=== PATIENT | male | born 1970 | race Caucasian/White ===

== ENCOUNTER 2021-10-12 05:43 | Inpatient (IN) | payer BC ==
[2021-10-12] MEDS ORDERED: TICAGRELOR 90 MG TABLET PO SCH (06:00)
[2021-10-12] MEDS ORDERED: Nitroglycerin 50 MG/250 ML BOT 250 ML ONE (06:02)
[2021-10-12] MEDS ORDERED: Heparin 10,000 UNITS/ 10 ML VIAL ONE (06:02)
[2021-10-12] MEDS ORDERED: Adenosine 6 MG/2 ML VIAL ONE (06:03)
[2021-10-12] MEDS ORDERED: Bivalirudin 250 MG VIAL ONE (06:03)
[2021-10-12] MEDS ORDERED: Verapamil 5 MG/2 ML VIAL ONE (06:03)
[2021-10-12] MEDS ORDERED: Fentanyl 100 MCG/2 ML VIAL ONE (06:04)
[2021-10-12] MEDS ORDERED: Midazolam HCl 5 mg/5 ml Vial ONE (06:04)
[2021-10-12] MEDS ORDERED: Morphine 4 MG/ML VIAL ONE ×2 (06:05→07:33)
[2021-10-12 06:21] LABS: #Basophils 0.1 10x3/uL (0.0-0.2); #Neutrophils 13.1 10x3/uL (1.5-8.4); %Basophils 0.3 % (0.0-2.0); %Eosinophils 0.2 % (0.0-6.0); %Lymphocytes 11.4 % (18.0-47.0); %Monocytes 11.5 % (0.0-10.0); Mean Corpuscular HGB CONC 33.1 g/dL (32.0-36.0); Mean Corpuscular Hemoglobin 30.1 pg (27.0-33.0); Mean Corpuscular Volume 90.7 fl (81.2-95.1); Mean Platelet Volume 10.9 fl (7.4-10.4); Platelet Count 313 10x3/uL (150-450); RBC Distribution Width 15.3 % (11.5-14.5); Red Blood Cell (RBC) Count 3.99 10x6/uL (4.32-5.72); White Blood Cell (WBC) Count 17.2 10x3/uL (3.5-10.5)
[2021-10-12 06:41] LABS: ALT (SGPT) 47 U/L (8-55); AST (SGOT) 54 U/L (5-34); Acetaminophen Less than 10.0 mcg/mL (10.0-30.0); Albumin 3.2 g/dL (3.5-5.0); Alcohol Less than 10 mg/dL (Less than 10); Alkaline Phosphatase 85 U/L (40-110); Anion Gap 18 mmol/L (10-20); BUN (Urea Nitrogen) 31 mg/dL (8.4-25.7); Bilirubin, Total 0.8 mg/dL (0.2-1.2); Calc. Creatinine Clearance 0 mL/min (70-130); Calcium 8.6 mg/dL (7.8-10.44); Carbon Dioxide 15 mmol/L (22-29); Chloride 108 mmol/L (98-107); Globulin 3.1 g/dL (2.4-3.5); Glucose 150 mg/dL (70-105); Magnesium 1.6 mg/dL (1.6-2.6); Potassium 4.5 mmol/L (3.5-5.1); Protein, Total 6.3 g/dL (6.0-8.3); Salicylate Less than 8.0 mg/dL (15.0-30.0); Sodium 136 mmol/L (136-145)
[2021-10-12] MEDS ORDERED: Ondansetron PF 4 MG/2 ML Vial ONE (06:50)
[2021-10-12 07:15] LABS: SARS-CoV-2 NAA Rapid Test Not Detected (NotDetected)
[2021-10-12 07:32] LABS: CKMB 9.2 ng/mL (0-6.6)
[2021-10-12] MEDS ORDERED: Senokot S 8.6-50 MG TAB PO PRN (08:08)
[2021-10-12] MEDS ORDERED: Acetaminophen 325 MG TAB PO PRN (08:08)
[2021-10-12] MEDS ORDERED: Ondansetron ODT 4 MG TAB PO PRN (08:08)
[2021-10-12] MEDS ORDERED: Calcium Carbonate 500 MG ChewTAB PO PRN (08:08)
[2021-10-12] MEDS ORDERED: HYDROcodone/Acetaminophen 5/325 mg Tablet PO PRN ×2 (08:08)
[2021-10-12] MEDS ORDERED: Loperamide HCl 2 MG CAP PO PRN (08:08)
[2021-10-12] MEDS ORDERED: Sodium Chloride 0.9% 200 ML IV PRN (08:13)
[2021-10-12] MEDS ORDERED: Acetaminophen/Codeine 30-300mg Tablet PO PRN (08:13)
[2021-10-12] MEDS ORDERED: Nitroglycerin 0.4 MG TAB (25 Tab Bottle) SL PRN (08:13)
[2021-10-12] MEDS ORDERED: DOPamine/D5W 400 mg/250 ml PREMIX ONE (08:30)
[2021-10-12] MEDS: Sodium Chloride 0.9% 1,000 ML IV SCH ×2 (08:30→20:37)
[2021-10-12] MEDS ORDERED: Enoxaparin Sodium 40 MG/0.4 ML SYRINGE SC SCH (09:00)
[2021-10-12] MEDS ORDERED: Morphine 2 MG/ML VIAL SLOW IVP PRN (09:45)
[2021-10-12] MEDS: Morphine 2 MG/ML VIAL SLOW IVP SCH ×2 (09:50→11:26)
[2021-10-12] MEDS: Aspirin 81 mg Enteric Coated Tablet PO SCH (09:58)
[2021-10-12] MEDS: Gabapentin 300 MG CAP PO SCH ×3 (10:03→20:16)
[2021-10-12] MEDS: Lisinopril 2.5 MG TAB PO SCH (10:04)
[2021-10-12 10:12] LABS: Troponin I 14.674 ng/mL (< 0.028)
[2021-10-12] MEDS ORDERED: Atropine Sulfate 1 mg/10 ml Syringe ONE (11:12)
[2021-10-12] MEDS: ALPRAZolam 0.25 MG TAB PO PRN (14:52)
[2021-10-12 15:24] LABS: Troponin I 33.074 ng/mL (< 0.028)
[2021-10-12] MEDS ORDERED: Iopamidol 300 61% 100 ML VIAL FS ONE (15:29)
[2021-10-12] MEDS: Carvedilol 6.25 MG TAB PO SCH (16:54)
[2021-10-12] MEDS: Morphine 2 MG/ML VIAL SLOW IVP PRN ×2 (17:44→20:17)
[2021-10-12] MEDS: Atorvastatin Calcium 40 MG TAB PO SCH (20:16)
[2021-10-12 21:09] LABS: Troponin I 32.906 ng/mL (< 0.028)
[2021-10-13] MEDS: Morphine 2 MG/ML VIAL SLOW IVP PRN ×7 (00:28→19:44)
[2021-10-13 03:11] LABS: #Monocytes 1.9 10x3/uL (0.0-1.1); #Neutrophils 8.3 10x3/uL (1.5-8.4); %Basophils 0.2 % (0.0-2.0); %Eosinophils 0.2 % (0.0-6.0); %Monocytes 14.4 % (0.0-10.0); %Neutrophils 63.7 % (40.0-75.0); Hemoglobin 11.1 g/dL (13.5-17.5); Mean Corpuscular HGB CONC 33.3 g/dL (32.0-36.0); Mean Corpuscular Hemoglobin 30.5 pg (27.0-33.0); Mean Corpuscular Volume 91.5 fl (81.2-95.1); Mean Platelet Volume 10.6 fl (7.4-10.4); Platelet Count 285 10x3/uL (150-450); RBC Distribution Width 15.5 % (11.5-14.5); Red Blood Cell (RBC) Count 3.64 10x6/uL (4.32-5.72)
[2021-10-13 04:40] LABS: ALT (SGPT) 131 U/L (8-55); AST (SGOT) 120 U/L (5-34); Albumin 3.3 g/dL (3.5-5.0); Alkaline Phosphatase 141 U/L (40-110); Anion Gap 16 mmol/L (10-20); BUN (Urea Nitrogen) 27 mg/dL (8.4-25.7); Bilirubin, Total 0.7 mg/dL (0.2-1.2); Calc. Creatinine Clearance 67 mL/min (70-130); Calcium 8.8 mg/dL (7.8-10.44); Carbon Dioxide 21 mmol/L (22-29); Chloride 102 mmol/L (98-107); Globulin 2.8 g/dL (2.4-3.5); Glucose 106 mg/dL (70-105); Potassium 4.6 mmol/L (3.5-5.1); Protein, Total 6.1 g/dL (6.0-8.3); Sodium 134 mmol/L (136-145)
[2021-10-13 05:38] VITALS: BMI 23.8
[2021-10-13] MEDS: Gabapentin 300 MG CAP PO SCH ×3 (08:14→19:57)
[2021-10-13] MEDS: Lisinopril 2.5 MG TAB PO SCH (08:16)
[2021-10-13] MEDS: Carvedilol 6.25 MG TAB PO SCH ×2 (08:17→09:03)
[2021-10-13] MEDS: Aspirin 81 mg Enteric Coated Tablet PO SCH (08:18)
[2021-10-13] MEDS: Enoxaparin Sodium 40 MG/0.4 ML SYRINGE SC SCH (08:19)
[2021-10-13] MEDS ORDERED: Carvedilol 25 MG TAB PO SCH (08:30)
[2021-10-13] MEDS ORDERED: Lisinopril 5 MG TAB PO SCH (09:00)
[2021-10-13 09:46] LABS: Cardiac Risk 3.8 (Less than 4.5)
[2021-10-13] MEDS: Carvedilol 25 MG TAB PO SCH (16:00)
[2021-10-13] MEDS: Zolpidem Tartrate 5 MG TAB PO PRN (19:57)
[2021-10-13] MEDS: Atorvastatin Calcium 40 MG TAB PO SCH (19:57)
[2021-10-14] MEDS: Morphine 2 MG/ML VIAL SLOW IVP PRN ×4 (00:25→21:08)
[2021-10-14 03:56] LABS: Hemoglobin 10.6 g/dL (13.5-17.5); Mean Corpuscular HGB CONC 33.5 g/dL (32.0-36.0); Mean Corpuscular Hemoglobin 30.7 pg (27.0-33.0); Mean Corpuscular Volume 91.6 fl (81.2-95.1); Mean Platelet Volume 10.9 fl (7.4-10.4); Platelet Count 282 10x3/uL (150-450); RBC Distribution Width 15.2 % (11.5-14.5); Red Blood Cell (RBC) Count 3.45 10x6/uL (4.32-5.72); White Blood Cell (WBC) Count 10.3 10x3/uL (3.5-10.5)
[2021-10-14 04:15] LABS: Anion Gap 17 mmol/L (10-20); BUN (Urea Nitrogen) 21 mg/dL (8.4-25.7); Calc. Creatinine Clearance 87 mL/min (70-130); Calcium 9.1 mg/dL (7.8-10.44); Carbon Dioxide 21 mmol/L (22-29); Chloride 110 mmol/L (98-107); Glucose 116 mg/dL (70-105); Potassium 4.2 mmol/L (3.5-5.1); Sodium 144 mmol/L (136-145)
[2021-10-14] MEDS: Carvedilol 25 MG TAB PO SCH ×2 (08:34→17:01)
[2021-10-14] MEDS: Enoxaparin Sodium 40 MG/0.4 ML SYRINGE SC SCH (08:34)
[2021-10-14] MEDS: ALPRAZolam 0.25 MG TAB PO PRN (08:35)
[2021-10-14] MEDS: Aspirin 81 mg Enteric Coated Tablet PO SCH (08:35)
[2021-10-14] MEDS: Acetaminophen/Codeine 30-300mg Tablet PO PRN ×2 (08:35→17:02)
[2021-10-14] MEDS: Gabapentin 300 MG CAP PO SCH ×3 (08:35→21:01)
[2021-10-14] MEDS ORDERED: TICAGRELOR 90 MG TABLET PO SCH (10:15)
[2021-10-14] MEDS ORDERED: Communication Order-Pharmacy FS SCH (15:15)
[2021-10-14] MEDS: Atorvastatin Calcium 40 MG TAB PO SCH (21:00)
[2021-10-14] MEDS: Zolpidem Tartrate 5 MG TAB PO PRN (22:25)
[2021-10-15] MEDS: Morphine 2 MG/ML VIAL SLOW IVP PRN ×6 (01:46→21:56)
[2021-10-15 04:22] LABS: Mean Corpuscular HGB CONC 33.5 g/dL (32.0-36.0); Mean Corpuscular Hemoglobin 30.4 pg (27.0-33.0); Mean Corpuscular Volume 90.6 fl (81.2-95.1); Mean Platelet Volume 10.6 fl (7.4-10.4); Platelet Count 322 10x3/uL (150-450); RBC Distribution Width 14.7 % (11.5-14.5); Red Blood Cell (RBC) Count 3.62 10x6/uL (4.32-5.72); White Blood Cell (WBC) Count 9.9 10x3/uL (3.5-10.5)
[2021-10-15 04:36] LABS: PTT 26.8 sec (22.0-33.0); Prothrombin Time 11.2 sec (9.5-12.1)
[2021-10-15 04:37] LABS: ALT (SGPT) 147 U/L (8-55); AST (SGOT) 75 U/L (5-34); Albumin 3.4 g/dL (3.5-5.0); Alkaline Phosphatase 166 U/L (40-110); Anion Gap 15 mmol/L (10-20); BUN (Urea Nitrogen) 16 mg/dL (8.4-25.7); Bilirubin, Total 0.5 mg/dL (0.2-1.2); Calc. Creatinine Clearance 85 mL/min (70-130); Calcium 9.2 mg/dL (7.8-10.44); Carbon Dioxide 23 mmol/L (22-29); Chloride 104 mmol/L (98-107); Globulin 3.2 g/dL (2.4-3.5); Glucose 106 mg/dL (70-105); Potassium 3.7 mmol/L (3.5-5.1); Protein, Total 6.6 g/dL (6.0-8.3); Sodium 138 mmol/L (136-145)
[2021-10-15 06:18] LABS: Anisocytosis SLIGHT = 6-15 cells (100X) (0-5/hpf); MDiff Complete? YES; Platelet Morphology Comment Appears Adequate; Poikilocytosis SLIGHT = 6-15 cells (100X) (0-5/hpf)
[2021-10-15 06:20] LABS: Band 5 % (5-11); Eosinophils 2 % (0-10); Lymphocytes 19 % (21-51); Monocytes 18 % (0-10); Neutrophil 54 % (42-75)
[2021-10-15] MEDS: TICAGRELOR 90 MG TABLET PO SCH ×2 (08:11→21:01)
[2021-10-15] MEDS: Aspirin 81 mg Enteric Coated Tablet PO SCH (08:11)
[2021-10-15] MEDS: Gabapentin 300 MG CAP PO SCH ×3 (08:11→21:01)
[2021-10-15] MEDS: Carvedilol 25 MG TAB PO SCH ×2 (08:11→16:24)
[2021-10-15] MEDS ORDERED: Heparin 10,000 UNITS/ 10 ML VIAL ONE (13:03)
[2021-10-15] MEDS ORDERED: Lidocaine 1% MPF 2 ML VIAL ONE (13:03)
[2021-10-15] MEDS ORDERED: Nitroglycerin 50 MG/250 ML BOT 250 ML ONE (13:03)
[2021-10-15] MEDS ORDERED: Verapamil 5 MG/2 ML VIAL ONE (13:04)
[2021-10-15] MEDS ORDERED: Adenosine 6 MG/2 ML VIAL ONE (13:04)
[2021-10-15] MEDS ORDERED: Bivalirudin 250 MG VIAL ONE (13:04)
[2021-10-15] MEDS ORDERED: Fentanyl 100 MCG/2 ML VIAL ONE (13:37)
[2021-10-15] MEDS ORDERED: Midazolam HCl 2 mg/2 ml Vial ONE (13:37)
[2021-10-15] MEDS ORDERED: Atropine Sulfate 0.4 mg/1 ml Vial ONE (14:17)
[2021-10-15] MEDS ORDERED: Ondansetron PF 4 MG/2 ML Vial ONE (14:17)
[2021-10-15] MEDS ORDERED: Acetaminophen/Codeine 30-300mg Tablet PO PRN ×2 (14:31)
[2021-10-15] MEDS ORDERED: Sodium Chloride 0.9% 200 ML IV PRN (14:31)
[2021-10-15] MEDS ORDERED: Nitroglycerin 0.4 MG TAB (25 Tab Bottle) SL PRN (14:31)
[2021-10-15] MEDS ORDERED: Iopamidol 300 61% 100 ML VIAL FS ONE (14:42)
[2021-10-15] MEDS: Atorvastatin Calcium 40 MG TAB PO SCH (21:01)
[2021-10-16] MEDS ORDERED: Bupivacaine 0.25% HCL 30 ML VIAL ONE (06:06)
[2021-10-16] MEDS ORDERED: EPINEPHrine 1 MG/ML AMP ONE (06:07)
[2021-10-16] MEDS ORDERED: Bupivacaine PF 0.5% 30 ML VIAL ONE (06:07)
[2021-10-16] MEDS ORDERED: Methylene Blue 50 MG/10 ML AMPUL ONE (06:07)
[2021-10-16] MEDS ORDERED: Neomycin-Polymyxin 1 ML AMP ONE (06:08)
[2021-10-16] MEDS: Aspirin 81 mg Enteric Coated Tablet PO SCH (08:34)
[2021-10-16] MEDS: TICAGRELOR 90 MG TABLET PO SCH (08:34)
[2021-10-16] MEDS: Gabapentin 300 MG CAP PO SCH (08:34)
[2021-10-16] MEDS: Carvedilol 25 MG TAB PO SCH (08:34)
[2021-10-16 11:21] VITALS: BP 117/75; TEMP 98
== END 2021-10-16 09:35 | disposition home or self-care (01) | DRG 247 ==
LOC: CSHERS 05:43 → CSHICU 09:47 → CSHTELE 10-13 12:58
PROVIDERS: ADMIT Specialist; ATTEND Specialist
PROC: 027034Z Dilation of Coronary Artery, One Artery with Drug-eluting Intraluminal Device, Percutaneous Approach (ICD-10-PCS; principal; 2021-10-12)
PROC: 02C03ZZ Extirpation of Matter from Coronary Artery, One Artery, Percutaneous Approach (ICD-10-PCS; 2021-10-12)
PROC: 4A023N7 Measurement of Cardiac Sampling and Pressure, Left Heart, Percutaneous Approach (ICD-10-PCS; 2021-10-12)
PROC: B2111ZZ Fluoroscopy of Multiple Coronary Arteries using Low Osmolar Contrast (ICD-10-PCS; 2021-10-12)
PROC: B2151ZZ Fluoroscopy of Left Heart using Low Osmolar Contrast (ICD-10-PCS; 2021-10-12)
PROC: B2111ZZ Fluoroscopy of Multiple Coronary Arteries using Low Osmolar Contrast (ICD-10-PCS; 2021-10-15)
DX: I21.19 ST elevation (STEMI) myocardial infarction involving other coronary artery of inferior wall (principal); I31.3 Pericardial effusion (noninflammatory); G89.29 Other chronic pain; M54.9 Dorsalgia, unspecified; F17.210 Nicotine dependence, cigarettes, uncomplicated; F12.90 Cannabis use, unspecified, uncomplicated; I25.5 Ischemic cardiomyopathy; E78.5 Hyperlipidemia, unspecified; I50.9 Heart failure, unspecified; I11.0 Hypertensive heart disease with heart failure; R79.89 Other specified abnormal findings of blood chemistry; Z79.82 Long term (current) use of aspirin; Z79.02 Long term (current) use of antithrombotics/antiplatelets; Z20.822 Contact with and (suspected) exposure to COVID-19; Z98.890 Other specified postprocedural states; Z79.899 Other long term (current) drug therapy; Z82.49 Family history of ischemic heart disease and other diseases of the circulatory system; I25.10 Atherosclerotic heart disease of native coronary artery without angina pectoris
CPT/HCPCS: 36415; 36416; 71045; 80048; 80053; 80061; 80307; 82553; 83036; 83735; 83880; 84484; 85025; 85027; 85347; 85610; 85730; 92941; 92973; 93005; 93010; 93306; 93454; 93458; 94760; 96374; 97139; 99152; 99153; C1725; C1726; C1769; C1874; C1887; C1894; C9606; J0153; J0171; J0461; J0583; J1265; J1644; J1650; J2250; J2270; J2405; J3010; J7050; Q9967; Q9968; S0020; U0002

== ENCOUNTER 2021-11-30 08:33 | Observation (INO) | payer BC ==
[2021-11-30 09:27] LABS: #Basophils 0.1 10x3/uL (0.0-0.2); #Eosinphils 0.1 10x3/uL (0.0-0.5); #Neutrophils 7.3 10x3/uL (1.5-8.4); %Basophils 0.5 % (0.0-2.0); %Eosinophils 0.9 % (0.0-6.0); %Lymphocytes 21.7 % (18.0-47.0); %Monocytes 9.6 % (0.0-10.0); %Neutrophils 66.7 % (40.0-75.0); Hemoglobin 13.7 g/dL (13.5-17.5); Mean Corpuscular HGB CONC 33.3 g/dL (32.0-36.0); Mean Corpuscular Hemoglobin 29.7 pg (27.0-33.0); Mean Corpuscular Volume 89.2 fl (81.2-95.1); Mean Platelet Volume 9.6 fl (7.4-10.4); Platelet Count 486 10x3/uL (150-450); RBC Distribution Width 15.2 % (11.5-14.5); Red Blood Cell (RBC) Count 4.61 10x6/uL (4.32-5.72); White Blood Cell (WBC) Count 10.9 10x3/uL (3.5-10.5)
[2021-11-30 09:46] LABS: ALT (SGPT) 20 U/L (8-55); AST (SGOT) 16 U/L (5-34); Albumin 4.7 g/dL (3.5-5.0); Alkaline Phosphatase 108 U/L (40-110); Anion Gap 21 mmol/L (10-20); BUN (Urea Nitrogen) 29 mg/dL (8.4-25.7); Bilirubin, Total 0.4 mg/dL (0.2-1.2); CK (CPK) 47 U/L (30-200); Calc. Creatinine Clearance 0 mL/min (70-130); Calcium 10.7 mg/dL (7.8-10.44); Carbon Dioxide 22 mmol/L (22-29); Chloride 101 mmol/L (98-107); Estimated GFR 39; Globulin 3.9 g/dL (2.4-3.5); Glucose 144 mg/dL (70-105); Potassium 4.7 mmol/L (3.5-5.1); Protein, Total 8.6 g/dL (6.0-8.3); Sodium 139 mmol/L (136-145)
[2021-11-30 10:09] LABS: CKMB 0.8 ng/mL (0-6.6)
[2021-11-30] MEDS ORDERED: Aspirin Chewable 81 MG TAB ONE (10:11)
[2021-11-30] MEDS ORDERED: Nitroglycerin 0.4 MG TAB (25 Tab Bottle) SL PRN (11:05)
[2021-11-30] MEDS ORDERED: Ondansetron PF 4 MG/2 ML Vial IVP PRN (11:05)
[2021-11-30] MEDS ORDERED: Nicotine 14 MG PATCH TD PRN (11:05)
[2021-11-30] MEDS ORDERED: Ondansetron ODT 4 MG TAB PO PRN (11:05)
[2021-11-30] MEDS ORDERED: Senokot S 8.6-50 MG TAB PO PRN (11:05)
[2021-11-30 13:15] VITALS: BMI 22.7
[2021-11-30] MEDS ORDERED: TICAGRELOR 90 MG TABLET PO SCH (13:45)
[2021-11-30] MEDS: Sodium Chloride 0.9% 1,000 ML IV SCH (14:02)
[2021-11-30 14:15] LABS: Magnesium 1.8 mg/dL (1.6-2.6)
[2021-11-30] MEDS ORDERED: Iopamidol 370 76% 100 ML VIAL ONE (15:11)
[2021-11-30 15:28] LABS: Troponin I 0.071 ng/mL (< 0.028)
[2021-11-30 16:31] LABS: SARS-CoV-2 NAA Rapid Test Not Detected (NotDetected)
[2021-11-30 16:51] LABS: Bilirubin Neg (Negative); Blood, Urine 10 (Negative); Clarity Clear (Clear); Glucose, Urine (Dipstick) Normal (Negative); Ketone, Urine Negative (Negative); Leukocyte Negative (Negative); Nitrite Negative (Negative); Protein, Urine (Dipstick) Negative (Neg-Trace); Specific Gravity, Urine 1.015 (1.002-1.036); Urobilinogen Normal mg/dL (Less than 2)
[2021-11-30 17:02] LABS: RBC/HPF 0-3 HPF (0-3)
[2021-11-30 17:56] LABS: Troponin I 0.072 ng/mL (< 0.028)
[2021-11-30] MEDS: Carvedilol 12.5 MG TAB PO SCH (20:18)
[2021-11-30] MEDS: Acetaminophen 325 MG TAB PO PRN (20:46)
[2021-11-30] MEDS: TICAGRELOR 90 MG TABLET PO SCH (20:46)
[2021-11-30] MEDS: Gabapentin 300 MG CAP PO SCH (20:48)
[2021-12-01 04:33] LABS: #Basophils 0.1 10x3/uL (0.0-0.2); #Eosinphils 0.2 10x3/uL (0.0-0.5); #Monocytes 0.9 10x3/uL (0.0-1.1); #Neutrophils 5.3 10x3/uL (1.5-8.4); %Basophils 0.8 % (0.0-2.0); %Eosinophils 2.2 % (0.0-6.0); %Lymphocytes 28.3 % (18.0-47.0); %Monocytes 10.3 % (0.0-10.0); %Neutrophils 58.2 % (40.0-75.0); Hemoglobin 12.5 g/dL (13.5-17.5); Mean Corpuscular HGB CONC 33.9 g/dL (32.0-36.0); Mean Corpuscular Hemoglobin 29.6 pg (27.0-33.0); Mean Corpuscular Volume 87.2 fl (81.2-95.1); Mean Platelet Volume 9.6 fl (7.4-10.4); Platelet Count 437 10x3/uL (150-450); RBC Distribution Width 15.3 % (11.5-14.5); Red Blood Cell (RBC) Count 4.23 10x6/uL (4.32-5.72)
[2021-12-01 04:51] LABS: Anion Gap 14 mmol/L (10-20); BUN (Urea Nitrogen) 26 mg/dL (8.4-25.7); Calc. Creatinine Clearance 56 mL/min (70-130); Carbon Dioxide 24 mmol/L (22-29); Chloride 105 mmol/L (98-107); Estimated GFR 59; Glucose 103 mg/dL (70-105); Potassium 4.4 mmol/L (3.5-5.1); Sodium 139 mmol/L (136-145)
[2021-12-01] MEDS: Acetaminophen 325 MG TAB PO PRN (05:37)
[2021-12-01] MEDS: Gabapentin 300 MG CAP PO SCH (08:10)
[2021-12-01] MEDS: Carvedilol 12.5 MG TAB PO SCH (08:11)
[2021-12-01] MEDS: Sodium Chloride 0.9% 1,000 ML IV SCH (08:12)
[2021-12-01] MEDS: TICAGRELOR 90 MG TABLET PO SCH (08:12)
[2021-12-01] MEDS ORDERED: Aspirin 81 mg Enteric Coated Tablet PO SCH (09:00)
[2021-12-01 12:07] VITALS: BP 131/77; TEMP 99
== END 2021-12-01 13:20 | disposition home or self-care (01) ==
LOC: CSHERS 08:33 → CSHTELE 11:42
PROVIDERS: ADMIT Internal Medicine; ATTEND Internal Medicine
DX: R07.9 Chest pain, unspecified (principal); I31.3 Pericardial effusion (noninflammatory); D72.829 Elevated white blood cell count, unspecified; D75.839 Thrombocytosis, unspecified; N17.9 Acute kidney failure, unspecified; R73.9 Hyperglycemia, unspecified; F17.210 Nicotine dependence, cigarettes, uncomplicated; I11.0 Hypertensive heart disease with heart failure; I50.22 Chronic systolic (congestive) heart failure; G89.29 Other chronic pain; M54.9 Dorsalgia, unspecified; I25.2 Old myocardial infarction; I25.10 Atherosclerotic heart disease of native coronary artery without angina pectoris; Z79.02 Long term (current) use of antithrombotics/antiplatelets; Z79.82 Long term (current) use of aspirin; Z79.899 Other long term (current) drug therapy; Z95.5 Presence of coronary angioplasty implant and graft; Z20.822 Contact with and (suspected) exposure to COVID-19
CPT/HCPCS: 71045; 71275; 80048; 80053; 81001; 82550; 82553; 83735; 84484; 85025; 85379; 93005; 93306; 94760; 96360; 96361; G0378; J7050; Q9967; U0002

== ENCOUNTER 2023-06-02 08:20 | Inpatient (IN) | payer BC ==
[2023-06-02 08:48] LABS: #Basophils 0.1 10x3/uL (0.0-0.2); #Eosinphils 0.1 10x3/uL (0.0-0.5); #Monocytes 0.6 10x3/uL (0.0-1.1); %Basophils 0.7 % (0.0-2.0); %Eosinophils 1.7 % (0.0-6.0); %Lymphocytes 28.6 % (18.0-47.0); %Monocytes 7.6 % (0.0-10.0); %Neutrophils 61.3 % (40.0-75.0); Mean Corpuscular HGB CONC 33.3 g/dL (32.0-36.0); Mean Corpuscular Hemoglobin 29.6 pg (27.0-33.0); Mean Corpuscular Volume 88.8 fl (81.2-95.1); Mean Platelet Volume 10.9 fl (7.4-10.4); Platelet Count 388 10x3/uL (150-450); RBC Distribution Width 14.9 % (11.5-14.5); Red Blood Cell (RBC) Count 5.07 10x6/uL (4.32-5.72); White Blood Cell (WBC) Count 8.2 10x3/uL (3.5-10.5)
[2023-06-02] MEDS ORDERED: Nitroglycerin 2% Ointment 1 INCH/1 GM Packet ONE (08:55)
[2023-06-02] MEDS ORDERED: Morphine 4 MG/ML VIAL ONE (08:55)
[2023-06-02] MEDS ORDERED: Labetalol HCl 100 MG/20 ML VIAL ONE (08:56)
[2023-06-02] MEDS ORDERED: Aspirin Chewable 81 MG TAB ONE (08:56)
[2023-06-02 09:09] LABS: ALT (SGPT) 17 U/L (8-55); AST (SGOT) 18 U/L (5-34); Albumin 4.1 g/dL (3.5-5.0); Alkaline Phosphatase 73 U/L (40-110); Anion Gap 17 mmol/L (10-20); BUN (Urea Nitrogen) 21 mg/dL (8.4-25.7); Bilirubin, Total 0.5 mg/dL (0.2-1.2); Calc. Creatinine Clearance 0 mL/min (70-130); Calcium 9.6 mg/dL (7.8-10.44); Carbon Dioxide 20 mmol/L (22-29); Chloride 107 mmol/L (98-107); Estimated GFR 51; Globulin 3.3 g/dL (2.4-3.5); Glucose 135 mg/dL (70-105); Magnesium 1.8 mg/dL (1.6-2.6); Potassium 4.6 mmol/L (3.5-5.1); Protein, Total 7.4 g/dL (6.0-8.3); Sodium 139 mmol/L (136-145)
[2023-06-02 09:12] LABS: Troponin I 0.032 ng/mL (< 0.028)
[2023-06-02] MEDS ORDERED: hydrALAZINE 20 MG/ML VIAL ONE ×2 (09:19→18:19)
[2023-06-02] MEDS ORDERED: Enoxaparin 60 MG (0.6 mL) SYRINGE ONE (09:24)
[2023-06-02] MEDS ORDERED: Acetaminophen 325 MG TAB PO PRN (09:51)
[2023-06-02] MEDS ORDERED: hydrALAZINE 20 MG/ML VIAL SLOW IVP PRN (09:56)
[2023-06-02] MEDS ORDERED: Magnesium 2 GM/50 ML(in water) 2 GM in Premix 1 BAG IVPB SCH (10:30)
[2023-06-02 11:53] LABS: Troponin I 0.022 ng/mL (< 0.028)
[2023-06-02 13:25] LABS: Bilirubin Neg (Negative); Blood, Urine Negative (Negative); Clarity Clear (Clear); Glucose, Urine (Dipstick) Normal (Negative); Ketone, Urine Negative (Negative); Leukocyte Negative (Negative); Nitrite Negative (Negative); Protein, Urine (Dipstick) 15 mg/dl (Neg-Trace); Urobilinogen Normal mg/dL (Less than 2)
[2023-06-02] MEDS ORDERED: Furosemide 40 MG (4 mL) VIAL SLOW IVP SCH (13:30)
[2023-06-02] MEDS ORDERED: Carvedilol 6.25 MG TAB PO SCH (13:30)
[2023-06-02] MEDS ORDERED: Furosemide 40 MG (4 mL) VIAL ONE (13:41)
[2023-06-02] MEDS ORDERED: Magnesium 2 GM/50 ML BAG (IN WATER) ONE (13:41)
[2023-06-02] MEDS ORDERED: Carvedilol 6.25 MG TAB ONE ×2 (13:43→16:04)
[2023-06-02 14:04] LABS: Bacteria/HPF Rare-Few HPF (None Seen); CAUTI Indications for Culture Pelvic or flank pain; RBC/HPF 0-3 HPF (0-3); Squamous Epithelial 0-3 HPF (0-3); WBC/HPF 0-3 HPF (0-3)
[2023-06-02 14:07] LABS: Urine Culture Reflex No No
[2023-06-02 15:06] VITALS: BMI 21.9
[2023-06-02 15:26] LABS: Troponin I 0.035 ng/mL (< 0.028)
[2023-06-02] MEDS ORDERED: Acetaminophen 325 MG TAB ONE (16:03)
[2023-06-02] MEDS: Carvedilol 6.25 MG TAB PO SCH (16:10)
[2023-06-02] MEDS ORDERED: Ketorolac Tromethamine 30 MG (1 mL) VIAL ONE (18:19)
[2023-06-02] MEDS ORDERED: Ketorolac Tromethamine 30 MG (1 mL) VIAL IVP SCH (20:00)
[2023-06-02] MEDS: Famotidine 20 MG TAB PO SCH (20:37)
[2023-06-02] MEDS: Atorvastatin Calcium 40 MG TAB PO SCH (20:37)
[2023-06-02] MEDS: Enoxaparin 60 MG (0.6 mL) SYRINGE SC SCH (20:38)
[2023-06-02] MEDS ORDERED: Metoprolol Tartrate 25 MG TAB PO SCH (21:00)
[2023-06-03 05:19] LABS: Anion Gap 14 mmol/L (10-20); BUN (Urea Nitrogen) 25 mg/dL (8.4-25.7); Calc. Creatinine Clearance 45 mL/min (70-130); Calcium 9.7 mg/dL (7.8-10.44); Carbon Dioxide 21 mmol/L (22-29); Chloride 106 mmol/L (98-107); Estimated GFR 47; Glucose 105 mg/dL (70-105); Magnesium 2.2 mg/dL (1.6-2.6); Potassium 3.6 mmol/L (3.5-5.1); Sodium 137 mmol/L (136-145)
[2023-06-03] MEDS ORDERED: Amlodipine 10 MG TAB PO SCH ×2 (10:00→10:30)
[2023-06-03] MEDS: Carvedilol 6.25 MG TAB PO SCH (10:15)
[2023-06-03] MEDS: Enoxaparin 60 MG (0.6 mL) SYRINGE SC SCH ×2 (10:20→21:07)
[2023-06-03] MEDS: Aspirin Chewable 81 MG TAB PO SCH (10:20)
[2023-06-03] MEDS: Famotidine 20 MG TAB PO SCH ×2 (10:20→21:08)
[2023-06-03] MEDS ORDERED: Carvedilol 12.5 MG TAB PO SCH ×2 (10:30→17:00)
[2023-06-03] MEDS ORDERED: Magnesium Sulfate 2 GM in Sodium Chloride 0.9% 100 ML IVPB SCH (13:30)
[2023-06-03] MEDS ORDERED: Magnesium 2 GM/50 ML(in water) 2 GM in Premix 1 BAG IVPB SCH (13:30)
[2023-06-03] MEDS ORDERED: Gabapentin 300 MG CAP PO SCH (13:30)
[2023-06-03] MEDS ORDERED: Potassium Chloride 20 MEQ TAB PO SCH (13:30)
[2023-06-03] MEDS ORDERED: Gabapentin 400 MG CAP PO SCH (13:30)
[2023-06-03] MEDS: hydrALAZINE 25 MG TAB PO SCH ×2 (13:51→21:08)
[2023-06-03] MEDS ORDERED: HYDROcodone/Acetaminophen 5/325 mg Tablet PO SCH (15:45)
[2023-06-03] MEDS ORDERED: Carvedilol 6.25 MG TAB PO SCH ×2 (17:00→18:00)
[2023-06-03] MEDS: hydrALAZINE 20 MG/ML VIAL SLOW IVP PRN (18:00)
[2023-06-03] MEDS: Atorvastatin Calcium 40 MG TAB PO SCH (21:08)
[2023-06-03] MEDS: Gabapentin 400 MG CAP PO SCH (21:08)
[2023-06-04] MEDS: hydrALAZINE 20 MG/ML VIAL SLOW IVP PRN (03:20)
[2023-06-04 06:06] LABS: #Basophils 0.1 10x3/uL (0.0-0.2); #Eosinphils 0.2 10x3/uL (0.0-0.5); #Monocytes 0.8 10x3/uL (0.0-1.1); #Neutrophils 4.3 10x3/uL (1.5-8.4); %Eosinophils 2.2 % (0.0-6.0); %Lymphocytes 26.8 % (18.0-47.0); %Monocytes 10.8 % (0.0-10.0); %Neutrophils 58.9 % (40.0-75.0); Hematocrit 39.7 % (38.8-50.0); Hemoglobin 13.6 g/dL (13.5-17.5); Mean Corpuscular HGB CONC 34.3 g/dL (32.0-36.0); Mean Corpuscular Hemoglobin 29.7 pg (27.0-33.0); Mean Corpuscular Volume 86.7 fl (81.2-95.1); Mean Platelet Volume 11.1 fl (7.4-10.4); Platelet Count 358 10x3/uL (150-450); RBC Distribution Width 15.2 % (11.5-14.5); Red Blood Cell (RBC) Count 4.58 10x6/uL (4.32-5.72); White Blood Cell (WBC) Count 7.3 10x3/uL (3.5-10.5)
[2023-06-04 06:11] LABS: Anion Gap 13 mmol/L (10-20); BUN (Urea Nitrogen) 23 mg/dL (8.4-25.7); Calc. Creatinine Clearance 56 mL/min (70-130); Calcium 9.2 mg/dL (7.8-10.44); Carbon Dioxide 20 mmol/L (22-29); Chloride 108 mmol/L (98-107); Estimated GFR 61; Glucose 102 mg/dL (70-105); Magnesium 1.8 mg/dL (1.6-2.6); Potassium 3.9 mmol/L (3.5-5.1); Sodium 137 mmol/L (136-145)
[2023-06-04] MEDS: Gabapentin 400 MG CAP PO SCH ×2 (08:09→20:58)
[2023-06-04] MEDS: Enoxaparin 60 MG (0.6 mL) SYRINGE SC SCH ×2 (08:09→20:58)
[2023-06-04] MEDS: hydrALAZINE 25 MG TAB PO SCH ×3 (08:09→20:50)
[2023-06-04] MEDS: Amlodipine 10 MG TAB PO SCH (08:09)
[2023-06-04] MEDS: Famotidine 20 MG TAB PO SCH ×2 (08:09→20:51)
[2023-06-04] MEDS: Aspirin Chewable 81 MG TAB PO SCH (08:10)
[2023-06-04] MEDS: Carvedilol 6.25 MG TAB PO SCH ×2 (08:10→16:19)
[2023-06-04] MEDS ORDERED: Amlodipine 10 MG TAB PO SCH (09:00)
[2023-06-04] MEDS ORDERED: hydrALAZINE 25 MG TAB PO SCH (10:00)
[2023-06-04] MEDS ORDERED: Valsartan 80 MG TAB PO SCH (10:00)
[2023-06-04] MEDS: HYDROcodone/Acetaminophen 5/325 mg Tablet PO PRN ×3 (10:25→20:52)
[2023-06-04] MEDS: Atorvastatin Calcium 40 MG TAB PO SCH (20:51)
[2023-06-05] MEDS: HYDROcodone/Acetaminophen 5/325 mg Tablet PO PRN ×5 (02:14→20:30)
[2023-06-05 06:11] LABS: #Basophils 0.1 10x3/uL (0.0-0.2); #Eosinphils 0.2 10x3/uL (0.0-0.5); #Monocytes 0.9 10x3/uL (0.0-1.1); #Neutrophils 4.1 10x3/uL (1.5-8.4); %Basophils 0.7 % (0.0-2.0); %Eosinophils 2.6 % (0.0-6.0); %Lymphocytes 26.5 % (18.0-47.0); %Monocytes 12.2 % (0.0-10.0); %Neutrophils 57.7 % (40.0-75.0); Hematocrit 40.9 % (38.8-50.0); Hemoglobin 13.5 g/dL (13.5-17.5); Mean Platelet Volume 10.8 fl (7.4-10.4); Platelet Count 349 10x3/uL (150-450); RBC Distribution Width 15.3 % (11.5-14.5); Red Blood Cell (RBC) Count 4.65 10x6/uL (4.32-5.72); White Blood Cell (WBC) Count 7.1 10x3/uL (3.5-10.5)
[2023-06-05] MEDS: hydrALAZINE 25 MG TAB PO SCH ×3 (06:15→20:29)
[2023-06-05 06:18] LABS: Anion Gap 12 mmol/L (10-20); BUN (Urea Nitrogen) 21 mg/dL (8.4-25.7); Calc. Creatinine Clearance 60 mL/min (70-130); Calcium 9.4 mg/dL (7.8-10.44); Carbon Dioxide 21 mmol/L (22-29); Chloride 107 mmol/L (98-107); Estimated GFR 67; Glucose 93 mg/dL (70-105); Magnesium 1.7 mg/dL (1.6-2.6); Potassium 4.1 mmol/L (3.5-5.1); Sodium 136 mmol/L (136-145)
[2023-06-05] MEDS: Amlodipine 10 MG TAB PO SCH (08:04)
[2023-06-05] MEDS: Valsartan 80 MG TAB PO SCH (08:05)
[2023-06-05] MEDS: Famotidine 20 MG TAB PO SCH ×2 (08:05→20:29)
[2023-06-05] MEDS: Carvedilol 6.25 MG TAB PO SCH ×2 (08:05→17:47)
[2023-06-05] MEDS: Gabapentin 400 MG CAP PO SCH ×2 (08:05→20:27)
[2023-06-05] MEDS: Aspirin Chewable 81 MG TAB PO SCH (08:06)
[2023-06-05] MEDS: Enoxaparin 60 MG (0.6 mL) SYRINGE SC SCH ×2 (08:06→20:24)
[2023-06-05] MEDS: hydrALAZINE 20 MG/ML VIAL SLOW IVP PRN (10:19)
[2023-06-05 12:13] LABS: Amphetamine Not Detected (NotDetected); Barbiturates Screen Not Detected (NotDetected); Benzodiazepine Screen Not Detected (NotDetected); Cocaine Metabolite Screen Not Detected (NotDetected); Methadone Not Detected (NotDetected); Methamphetamine Not Detected (NotDetected); Opiate Screen Detected (NotDetected); Oxycodone Screen Not Detected (NotDetected); Phencyclidine (PCP) Not Detected (NotDetected); THC/Cannabinoid Screen Not Detected (NotDetected); Tricyclic Screen Not Detected (NotDetected)
[2023-06-05] MEDS: Nicotine 14 MG PATCH TD SCH (15:39)
[2023-06-05] MEDS: Atorvastatin Calcium 40 MG TAB PO SCH (20:29)
[2023-06-06] MEDS: HYDROcodone/Acetaminophen 5/325 mg Tablet PO PRN ×5 (00:32→20:00)
[2023-06-06 05:18] LABS: #Eosinphils 0.2 10x3/uL (0.0-0.5); #Monocytes 0.7 10x3/uL (0.0-1.1); #Neutrophils 4.3 10x3/uL (1.5-8.4); %Basophils 0.6 % (0.0-2.0); %Eosinophils 2.3 % (0.0-6.0); %Lymphocytes 26.3 % (18.0-47.0); %Monocytes 9.9 % (0.0-10.0); %Neutrophils 60.6 % (40.0-75.0); Hemoglobin 13.7 g/dL (13.5-17.5); Mean Corpuscular HGB CONC 33.4 g/dL (32.0-36.0); Mean Corpuscular Hemoglobin 29.1 pg (27.0-33.0); Mean Platelet Volume 9.8 fl (7.4-10.4); Platelet Count 334 10x3/uL (150-450); RBC Distribution Width 15.1 % (11.5-14.5); Red Blood Cell (RBC) Count 4.71 10x6/uL (4.32-5.72); White Blood Cell (WBC) Count 7.1 10x3/uL (3.5-10.5)
[2023-06-06] MEDS: Aspirin Chewable 81 MG TAB PO SCH (09:28)
[2023-06-06] MEDS: Enoxaparin 60 MG (0.6 mL) SYRINGE SC SCH (09:29)
[2023-06-06] MEDS: Gabapentin 400 MG CAP PO SCH ×2 (09:29→20:01)
[2023-06-06] MEDS: hydrALAZINE 25 MG TAB PO SCH ×3 (09:29→19:59)
[2023-06-06] MEDS: Famotidine 20 MG TAB PO SCH ×2 (09:29→20:00)
[2023-06-06] MEDS: Isosorbide Dinitrate 10 MG TAB PO SCH ×2 (09:29→20:01)
[2023-06-06] MEDS: Amlodipine 10 MG TAB PO SCH (09:30)
[2023-06-06] MEDS: Valsartan 80 MG TAB PO SCH (09:30)
[2023-06-06 12:29] LABS: Urine Total Volume 1950 mL (800-1800)
[2023-06-06 13:10] LABS: Protein, Urine Less than 10 mg/dL (1-14)
[2023-06-06] MEDS: Nicotine 14 MG PATCH TD SCH (16:20)
[2023-06-06] MEDS: Carvedilol 6.25 MG TAB PO SCH (19:16)
[2023-06-06] MEDS: Atorvastatin Calcium 40 MG TAB PO SCH (20:01)
[2023-06-07] MEDS: HYDROcodone/Acetaminophen 5/325 mg Tablet PO PRN ×5 (00:03→16:40)
[2023-06-07 06:23] LABS: #Basophils 0.1 10x3/uL (0.0-0.2); #Eosinphils 0.2 10x3/uL (0.0-0.5); #Monocytes 1.4 10x3/uL (0.0-1.1); #Neutrophils 6.5 10x3/uL (1.5-8.4); %Basophils 0.5 % (0.0-2.0); %Eosinophils 1.5 % (0.0-6.0); %Lymphocytes 22.3 % (18.0-47.0); %Monocytes 12.9 % (0.0-10.0); %Neutrophils 62.2 % (40.0-75.0); Hematocrit 41.2 % (38.8-50.0); Hemoglobin 13.6 g/dL (13.5-17.5); Mean Corpuscular Hemoglobin 29.1 pg (27.0-33.0); Mean Platelet Volume 10.5 fl (7.4-10.4); Platelet Count 340 10x3/uL (150-450); RBC Distribution Width 15.3 % (11.5-14.5); Red Blood Cell (RBC) Count 4.68 10x6/uL (4.32-5.72); White Blood Cell (WBC) Count 10.4 10x3/uL (3.5-10.5)
[2023-06-07] MEDS: Gabapentin 400 MG CAP PO SCH (08:28)
[2023-06-07] MEDS: Valsartan 80 MG TAB PO SCH (08:28)
[2023-06-07] MEDS: Isosorbide Dinitrate 10 MG TAB PO SCH (08:28)
[2023-06-07] MEDS: Famotidine 20 MG TAB PO SCH (08:29)
[2023-06-07] MEDS: Aspirin Chewable 81 MG TAB PO SCH (08:29)
[2023-06-07] MEDS: Carvedilol 6.25 MG TAB PO SCH ×2 (08:29→16:32)
[2023-06-07] MEDS: hydrALAZINE 25 MG TAB PO SCH ×2 (08:29→16:32)
[2023-06-07] MEDS: Amlodipine 10 MG TAB PO SCH (08:29)
[2023-06-07 13:28] VITALS: TEMP 98.3
[2023-06-07] MEDS ORDERED: Valsartan 80 MG TAB PO SCH (17:00)
[2023-06-07 17:07] VITALS: BP 168/98
[2023-06-08] MEDS ORDERED: Valsartan 80 MG TAB PO SCH (09:00)
== END 2023-06-07 17:20 | disposition home or self-care (01) | DRG 291 ==
LOC: CSHERS 08:20 → CSHERHOLD 09:41 → CSHTELE 19:52
PROVIDERS: ADMIT Internal Medicine; ATTEND Internal Medicine
DX: I11.0 Hypertensive heart disease with heart failure (principal); I50.23 Acute on chronic systolic (congestive) heart failure; I16.1 Hypertensive emergency; N17.9 Acute kidney failure, unspecified; I43 Cardiomyopathy in diseases classified elsewhere; I25.2 Old myocardial infarction; Z98.890 Other specified postprocedural states; Z95.5 Presence of coronary angioplasty implant and graft; Z79.82 Long term (current) use of aspirin; Z79.899 Other long term (current) drug therapy; G89.29 Other chronic pain; Z82.49 Family history of ischemic heart disease and other diseases of the circulatory system; F17.210 Nicotine dependence, cigarettes, uncomplicated; E78.5 Hyperlipidemia, unspecified; M54.50 Low back pain, unspecified; M25.532 Pain in left wrist
CPT/HCPCS: 36415; 36416; 71045; 76770; 80048; 80053; 80306; 81001; 82088; 82533; 83735; 83835; 83880; 84156; 84244; 84443; 84484; 85025; 93005; 93010; 93306; 93976; 96361; 96372; 96374; 96375; J0360; J1650; J1885; J1940; J2270; J3475